=== PATIENT | male | born 1960 | race Caucasian/White ===

== ENCOUNTER 2019-12-09 15:30 | Emergency (ER) | payer BC, SELFPAY ==
[2019-12-09 15:31] VITALS: BP 165/89; PULSE 91; RESP 20; TEMP 36.7; O2SAT 98; BMI 31.6
--- NOTE | 2019-12-09 15:40 | CT_ITS ---
STUDY: CT ABDOMEN AND PELVIS WITHOUT CONTRAST REASON FOR EXAM: Male, 59 years old. Left flank pain, nausea today, hypertension. RADIATION DOSAGE (If Supplied By Facility): CTDIvol = ( 17.15 ) mGy, DLP = ( 938.39 ) mGycm TECHNIQUE: Transaxial images were obtained from the dome of the diaphragm to the symphysis pubis without oral contrast, and without intravenous contrast. Sagittal and coronal images were reconstructed. Individualized dose optimization techniques were used for this CT. COMPARISON: None. FINDINGS: The visualized lung bases are unremarkable. The visualized portions of the heart are within normal limits. Multiple well-defined low-density cystic lesions throughout the liver compatible with simple cysts. Benign, incidental finding; no specific imaging workup recommended according to current ACR guidelines. Diminished density throughout the liver is compatible with hepatic steatosis. Normal gallbladder and extrahepatic biliary system. Normal spleen. Normal pancreas. Normal bilateral adrenal glands. There are bilateral renal cysts measuring up to 6 cm on the left side. Benign, incidental finding; no specific imaging workup recommended according to current ACR guidelines. Mild left hydronephrosis and periureteral stranding with a 2 mm calculus in the distal left ureter on image 166 of series 2. Normal visualized stomach. Normal small intestine. Normal colon. There is non-visualization of the appendix. There is diffuse atherosclerotic calcification of the abdominal aorta, without a demonstrated aneurysm. Normal inferior vena cava. Normal retroperitoneum. Nondistended urinary bladder. There are prostatic calcifications. Normal abdominal wall. Facet arthropathy of the lower lumbar spine with foraminal narrowing at L4-L5 and L5-S1. CT/Abdomen/Pelvis without Cont IMPRESSION: 1. 2 mm distal left ureter calculus with mild hydronephrosis. 2. Hepatic steatosis. 3. Appendectomy. Electronically Signed: Chencho Morataya MD ([place]) at 16:37 EDT , Service support ,
--- NOTE | 2019-12-09 15:41 | ED.VISSUMM ---
- ER Visit Summary Date of Service: 12/09/19 Chief Complaint: [Flank pain] History of Present Illness: The patient is a 59 M [ present to the emergency department with pain that started around 8 AM. Patient has had nausea but no vomiting. He denies any blood in his stool or black tarry stool. He denies urinary symptoms. He is never had pain like this before. He currently rates it a 5 or 6 out of 10. Patient has history of hypertension and high cholesterol. Patient denies any injury to his back.] Physical Examination: [HEENT-PERRLA, EOMI. Cranial nerves II through XII grossly intact. TMs clear. Mucous membranes moist. No adenopathy. Cardiovascular-regular rate and rhythm without murmur or ectopy Lungs-clear to auscultation, chest wall stable without crepitus or subcu emphysema Abdomen-normoactive bowel sounds, soft. Patient has tenderness palpation over left lower quadrant with some guarding. There is no rebound, rigidity, or cranial signs. Patient does have some CVA tenderness on the left. Extremities-intact ?4, normal range of motion, normal pulses, atraumatic] Test Results: [CBC with differential obtained showed a white count of 10.9, hemoglobin 15.8, hematocrit 45, platelets 218. Chemistries unremarkable. BUN was 16 and creatinine 1.61. Urinalysis was unremarkable for infection but did have 0-5 RBCs. Lactate was 2.9. [address] flank showed a 2 mm stone distal left ureter with mild hydronephrosis.] Emergency Department Course and Treatment: [IV line established. Patient was given normal saline. Patient was medicated with Dilaudid, Toradol, and Zofran. Patient had good pain relief with that.] Treatment Plan: Patient will be given urine strainers. Patient given a prescription for [place] for pain. Patient advised to follow-up with his urologist in 3 to 5 days. Patient advised to return if worsening pain, fever, vomiting, or condition should worsen anyway.] Disposition: [Discharged home in stable condition] Impression: [Left ureteral lithiasis] This note was generated with [employer] software. It may contain incorrect words, spelling, and punctuation that were not noted in review of the chart prior to signing
[2019-12-09] MEDS: 0.9% Normal Saline 1,000 ML 125 ML IV (15:56)
[2019-12-09] MEDS: Ketorolac 30 MG/ML Syringe 15 MG IV (15:57)
[2019-12-09] MEDS: Ondansetron 4 MG/2 ML Vial IV (15:57)
[2019-12-09] MEDS: HYDROmorphone 1 MG/ML Syringe IV (15:57)
[2019-12-09 16:02] LABS: Absolute Neutrophil Count 9.6 X10^3/uL (2.0-7.7); Basophil# 0.02 X10^3/uL; Basophil% 0.2 % (0-1); Hematocrit 45.2 % (40-54); Hemoglobin 15.8 g/dL (13.0-16.5); Lymphocyte % 7.3 % (19-41); Mean Corpuscular Hgb 31.9 pg (27.0-32.0); Mean Corpuscular Volume 91.1 fL (80-94); Mean Platelet Vol. 9.1 fl (6.2-12.0); Monocyte# 0.45 X10^3/uL; Monocyte% 4.1 % (0-10); NRBC Flagged by Analyzer 0 % (0-5); Neutrophil # 9.59 X10^3/uL (2.7-7.7); Neutrophil % 87.9 % (47-70); POSITIVE MORPHOLOGY YES; Platelet Count 218 K/mm3 (150-450); RBC Distribution Width CV 12.1 % (11.6-14.6); RBC Distribution Width SD 39.8 fl (35.1-43.9); Red Blood Count 4.96 M/mm3 (4.6-6.2); White Blood Count 10.9 K/mm3 (4.4-11.0)
[2019-12-09 16:05] LABS: Differential Indicated SCAN CRITERIA MET
[2019-12-09 16:13] LABS: Anion Gap 7 (5-15); BUN 16 mg/dL (7-18); BUN/Creat Ratio 9.9 RATIO (10-20); Calcium,Total 9.4 mg/dL (8.5-10.1); Chloride 111 mmol/L (98-107); Creatinine, Serum 1.61 mg/dL (0.70-1.30); EST Glomerular Filtration Rate 47 mL/min (>60); Est Glom Filt Rate - Afr Amer 56 mL/min (>60); Estimated Creatinine Clearance 54.45 ml/min; Glucose 145 mg/dL (74-106); Potassium 4.3 mmol/L (3.5-5.1); Sodium Level 142 mmol/L (136-145)
[2019-12-09 16:17] LABS: Bacteria 0 SEEN /hpf (None Seen); Color, Urine Yellow (Yellow); Glucose, Dipstick Normal (Normal); Ketone-Dipstick 5 mg/dl (Negative); Leukocyte Esterase-Dipstick Negative /ul (Negative); Mucous, Urine 0 SEEN /hpf (<or=2+); Nitrite-Dipstick Negative (Negative); Occult Blood-Urine 25 /ul (Negative); Protein-Dipstick 30 mg/dl (Negative); Urine Bilirubin Dipstick Negative (Negative); Urine Urobilinogen Normal (Normal); White Blood Cells 0 SEEN /hpf (0-5)
[2019-12-09 16:31] LABS: Red Blood Cells-Urine 0-5 SEEN /hpf (0-5); Squamous Epithelial Cells - UA 0-5 SEEN /hpf (0-5)
[2019-12-09 16:32] LABS: Urine Clarity Sl Cldy (Clear)
[2019-12-09 16:35] LABS: Lactic Acid 2.9 mmol/L (0.4-1.9)
[2019-12-09 16:39] LABS: Reflex Lactate? Y
[2019-12-09 16:50] LABS: Differential Comment SCANNED; Platelet Estimate ADEQUATE (ADEQ); Red Cell Morphology NORM C+C NORMAL (NORM C&C)
--- NOTE | 2019-12-09 16:59 | DCINST.ED_ITS ---
ED Disposition - Plan for ED Patient: Instructions: ED Renal Stone w Colic Prescriptions: Naproxen [Naprosyn] 500 mg PO BID PRN #20 tab Prescription Printed Hydrocodone Bitart/Apap 5-325 [[place] 5MG-325MG] 1 tab PO Q4H PRN PRN 2 Days #10 tab PRN Reason: Pain Prescription Printed Ondansetron [Zofran Odt] 4 mg PO Q8H PRN PRN #10 tab PRN Reason: Nausea Prescription Printed Referrals: Porter Miranda MD [Primary Care Provider] - Additional Instructions: see your urologist as needed
== END 2019-12-09 17:14 | disposition home or self-care (01) ==
LOC: ED 16:48
PROVIDERS: Emergency Provider Emergency Medicine; PCP Family Medicine
DX: N20.1 Calculus of ureter (principal)
CPT/HCPCS: 74176; 80048; 81001; 83605; 85025; 96374; 96375; 99283; J7030; A4216; J2405

== ENCOUNTER 2020-05-22 11:09 | Outpatient (RCR) | payer BC, SELFPAY ==
[2020-05-22] MEDS: COVID-19 VACC, MRNA(PFIZER)/PF 30 MCG/0.3 ML SYRINGE IM (17:10)
[2020-06-12] MEDS: COVID-19 VACC, MRNA(PFIZER)/PF 30 MCG/0.3 ML SYRINGE IM (16:30)
== END 2020-08-19 23:59 ==
LOC: IMMUN 11:09
PROVIDERS: PCP Family Medicine; Visit Provider Family Medicine
DX: Z23 Encounter for immunization (principal)
CPT/HCPCS: 0001A; 0002A; 91300

== ENCOUNTER 2023-04-18 07:16 | Emergency (ER) | payer OTHER, SELFPAY ==
[2023-04-18 07:16] VITALS: BP 143/83; PULSE 63; RESP 18; TEMP 36.6; O2SAT 97; BMI 33.0
--- NOTE | 2023-04-18 07:28 | CT_ITS ---
STUDY: CT ABDOMEN AND PELVIS WITHOUT CONTRAST REASON FOR EXAM: Male, 63 years old. Kidney Stone. Left-sided lower back pain. RADIATION DOSAGE (If Supplied By Facility): CTDIvol = ( 18.68 ) mGy, DLP = ( 1101.57 ) mGycm TECHNIQUE: Transaxial images were obtained from the dome of the diaphragm to the symphysis pubis without oral contrast, and without intravenous contrast. Sagittal and coronal images were reconstructed. Individualized dose optimization techniques were used for this CT. COMPARISON: Comparison is made with prior examination of December 09, 2019. FINDINGS: The visualized lung bases are unremarkable. The visualized portions of the heart are within normal limits. Once again, simple cysts are seen in both lobes of the liver. The largest cyst is the right lobe of the liver in the region of the dome measuring 4.9 cm x 5 cm. Once again, there is evidence of fatty infiltration of the liver. Normal gallbladder and extrahepatic biliary system. Normal spleen. Normal pancreas. Normal bilateral adrenal glands. There is a 1.9 cm cyst in the midportion of the right kidney. Stable cyst seen in the midportion of the left kidney measuring 6.6 cm x 5.9 cm. Normal visualized stomach. Normal small intestine. Normal colon. There is non-visualization of the appendix. There is scattered atherosclerotic calcification of the abdominal aorta, without a demonstrated aneurysm. Normal inferior vena cava. Normal retroperitoneum. Normal urinary bladder. There are prostatic calcifications. Normal abdominal wall. Normal osseous structures. CT/Abdomen/Pelvis without Cont IMPRESSION: Fatty infiltration of the liver. Multiple hepatic cysts. Stable bilateral renal cysts. No obstructive uropathy is seen. Electronically Signed: Caden Cardenas MD at 8:42 EST ,
--- NOTE | 2023-04-18 07:29 | ED.VIS.BACK ---
HPI History of Present Illness Chief Complaint: Back Narrative Narrative: 63-year-old male past medical history of hypertension, hypercholesterolemia, presents with left-sided back pain/flank pain that began yesterday evening around 5 PM, approximately 14 hours ago. It was sudden in onset. He denies any injury. He states that he could not get comfortable or find a comfortable position. He took pain medication and was able to sleep somewhat during the night but when he woke up, he is having continued left low back pain and flank pain. He denies any fevers or chills. No nausea or vomiting. No hematuria or dysuria. Pain is deep within his back. Of note, he and his state that about a year ago he was seen in the emergency department and was diagnosed with a kidney stone and this feels very similar. [facility] Medical History Hypertension Home Medications naproxen 500 mg tablet 500 mg PO BID PRN #20 tabs 12/09/19 [Rx Last Taken Unknown] ondansetron 4 mg disintegrating tablet 4 mg PO Q8H PRN PRN Nausea #10 tabs 12/09/19 [Rx Last Taken Unknown] atorvastatin 40 mg tablet 40 mg PO DAILY 04/18/23 [History Last Taken Unknown] cyclobenzaprine 10 mg tablet 10 mg PO TID PRN Muscle Spasm #20 TABLETS 04/18/23 [Rx Last Taken Unknown] folic acid 1 mg tablet 1 mg PO DAILY 04/18/23 [History Last Taken Unknown] hydrochlorothiazide 12.5 mg tablet 12.5 mg PO DAILY 04/18/23 [History Last Taken Unknown] ibuprofen 600 mg tablet 600 mg PO Q8H PRN PRN pain #20 TABLETS 04/18/23 [Rx Last Taken Unknown] levothyroxine 175 mcg tablet 175 mcg PO DAILY 04/18/23 [History Last Taken Unknown] losartan 100 mg tablet 100 mg PO DAILY 04/18/23 [History Last Taken Unknown] metoprolol succinate 50 mg tablet,extended release 24 hr 50 mg PO DAILY 04/18/23 [History Last Taken Unknown] Allergy/AdvReac Type Severity Reaction Status Date / Time No Known Allergies Allergy Verified 04/18/23 07:19 Social History Smoking Status: Never smoker ROS ROS ED ROS Narrative Constitutional: No fever, no chills. HEENT: No sore throat. No neck pain. No loss of vision. No rhinorrhea. Cardiovascular: No chest pain. No palpitations. No pedal edema. Respiratory: No cough, no shortness of breath. Abdominal: No abdominal pain. No nausea. No vomiting. Genitourinary: No dysuria. No hematuria. Left low back pain/flank pain Musculoskeletal: No myalgias. No arthralgias. Neurologic: No headaches. No dizziness. No lightheadedness. Skin: No rash. No change in color. Psychiatric: No depression. No anxiety. EXAM Physical Exam Narrative Exam Narrative: Afebrile. Vital signs noted. HEENT: Normocephalic. Atraumatic. PERRL, EOMI. Neck soft and supple. No point tenderness or step off. Cardiovascular: Regular rate and rhythm. No murmurs, rubs, or gallops appreciated. Respiratory: No tachypnea. Lungs clear to auscultation bilaterally. Gastrointestinal: Abdomen soft, nontender, with normoactive bowel sounds. No rebound or guarding. Neurological: Awake. Alert. Nonfocal, nonlateralizing. Skin: No rash. Normal color. No pallor. Musculoskeletal: No pedal edema. Full range of motion extremities. No tenderness in sciatic notch. No vertebral point tenderness or bony step-off of the low back. No CVA tenderness to percussion, left. Const Vital Signs: 04/18/23 07:16 Temperature 97.9 F Temperature Source Temporal Pulse Rate 63 Respiratory Rate 18 Blood Pressure 143/83 H Blood Pressure Mean 103 Pulse Ox 97 Oxygen Delivery Method Room Air MDM MDM MDM Narrative Medical decision making narrative: I reviewed his prior records. He was seen initially for abdominal pain and diagnosed with a 2 mm stone in the differential is ureteral. In the differential is ureterolithiasis versus musculoskeletal back pain. I have low suspicion for any bowel pathology such as diverticulitis as a history and physical does not support this. I do feel CT imaging is indicated. CBC and BMP were obtained. Initially he declines any narcotic analgesic and he was administered Toradol 30 mg intravenously and started on IV fluids at 250 mL/h. This was increased to a bolus. I reviewed his laboratory work from today and he has normal white count of 6.1, hemoglobin 14.8, hematocrit 42.8, platelet count normal at 166. His chloride is slightly elevated at 111 which I think is nonspecific, BUN normal at 14 with creatinine 1.07. Glucose is elevated at 139 but he has a normal anion gap/low at 2. I have low concern for any diabetic ketoacidosis. Urinalysis was reviewed and is negative for infection. I do not feel antibiotics are indicated. I reviewed the radiology report of the CT without contrast and there is no evidence of ureterolithiasis or hydronephrosis. There are kidney cysts and liver cysts which were also present in the CT scan of 2019 and appears stable. Upon repeat examination, after Toradol, he feels improved. I do feel that he may have more musculoskeletal back pain. He was written prescriptions for ibuprofen 600 mg to take every 8 hours he was warned of the risk of ulcers and increase in blood pressure. Additionally, he was told that Flexeril may make him drowsy so he should take it at night if possible. I do not feel he requires admission. I feel he can be discharged to follow-up with his primary care provider. Return instructions to the emergency department were reviewed. Disposition is discharged home in stable condition. History & Record Review Discussion w/independent historian: Patient and Family Additional record(s) reviewed:: Prior ED visit Lab Data Attestation: I reviewed the patient's lab results. Labs: Laboratory Results - last 24 hr 04/18/23 04/18/23 07:50 08:55 WBC 6.1 RBC 4.71 Hgb 14.8 Hct 42.8 MCV 90.9 MCH 31.4 MCHC 34.6 RDW Std Deviation 40.4 RDW Coeff of Stephanie 12.5 Plt Count 166 MPV 9.3 Immature Gran % (Auto) 0.500 Neut % (Auto) 65.6 Lymph % (Auto) 24.3 [place] % (Auto) 7.6 Eos % (Auto) 1.5 Baso % (Auto) 0.5 Absolute Neuts (auto) 4.0 Absolute Lymphs (auto) 1.48 Nucleated RBC % 0 Sodium 143 Potassium 4.0 Chloride 111 H Carbon Dioxide 30.0 Anion Gap 2 L BUN 14 Creatinine 1.07 Estim Creat Clear Calc 90.92 Est GFR (MDRD) Af Amer 89 Est GFR (MDRD) Non-Af 74 BUN/Creatinine Ratio 13.1 Glucose 139 H Calcium 9.3 Urine Color Yellow Urine Clarity Sl. Cloudy Urine pH 6.0 Ur Specific [place] 1.020 Urine Protein Negative Urine Glucose (UA) Normal Urine Ketones Negative Urine Occult Blood Negative Urine Nitrite Negative Urine Bilirubin Negative Urine Urobilinogen Normal Ur Leukocyte Esterase Negative Urine RBC 0 SEEN Urine WBC 0 SEEN Ur Squamous Epith Cells 0 SEEN Urine Bacteria 0 SEEN Urine Mucus 0 SEEN Radiography Diagnostic Testing: Clinical Impression(s) from Imaging Studies Abdomen/Pelvis CT 04/18/23 07:28 IMPRESSION: Fatty infiltration of the liver. Multiple hepatic cysts. Stable bilateral renal cysts. No obstructive uropathy is seen. Electronically Signed: Caden Cardenas MD at 8:42 EST , Discharge Plan Triage Chief Complaint: Back ED Provider: Kenny Perez Dx/Rx/DC Orders Clinical Impression: Kidney cysts, Liver cyst, Left low back pain, Left flank pain Instructions: Simple Kidney Cysts, ED Back Pain (Acute or Chronic), ED Back Sprain/Strain, ED Flank Pain, Uncertain Cause Prescriptions: New ibuprofen 600 mg tablet 600 mg PO Q8H PRN PRN (Reason: pain) Qty: 20 0RF cyclobenzaprine 10 mg tablet 10 mg PO TID PRN (Reason: Muscle Spasm) Qty: 20 0RF No Action ondansetron 4 MG tablet 4 mg PO Q8H PRN PRN (Reason: Nausea) Qty: 10 0RF naproxen 500 MG tablet 500 mg PO BID PRN Qty: 20 0RF atorvastatin 40 mg tablet 40 mg PO DAILY levothyroxine 175 mcg tablet 175 mcg PO DAILY metoprolol succinate 50 mg tablet extended release 24 hr 50 mg PO DAILY folic acid 1 mg tablet 1 mg PO DAILY losartan 100 mg tablet 100 mg PO DAILY hydrochlorothiazide 12.5 mg tablet 12.5 mg PO DAILY Primary Care Provider: Porter Miranda Referrals: Porter Miranda MD [Primary Care Provider] - 1 Week if not improving Activity Restrictions/Additional Instructions: You have cysts on your kidneys and in your liver. These were also seen on a CAT scan in 2019. Disposition Disposition: Home, Self Care
--- OUTSIDE RECORDS SUMMARY | 2023-04-18 07:42 | XMS RPT_ITS | CCD ---
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 type Vitamin D deficiency Unspecified vitamin D deficiency Hypothyroidism, acquired Unspecified hypothyroidism Elevated glucose Other abnormal glucose documented in this encounter [facility] note* Diagnosis Hypertension, unspecified type- Primary Hyperlipidemia, unspecified hyperlipidemia type Hypothyroidism, acquired Unspecified hypothyroidism HERLINDA (obstructive sleep apnea) Obstructive sleep apnea (adult) (pediatric) Sinus congestion Other diseases of nasal cavity and sinuses [facility] Diagnosis Presbyopia- Primary Combined forms of age-related cataract of both eyes Other and combined forms of senile cataract documented in this encounter [facility] note* Diagnosis Hypertension, unspecified type- Primary Hyperlipidemia, unspecified hyperlipidemia type Hypothyroidism, acquired Unspecified hypothyroidism HERLINDA (obstructive sleep apnea) Obstructive sleep apnea (adult) (pediatric) Chronic midline low back pain without sciatica documented in this encounter [facility] note* Diagnosis Neoplasm of uncertain behavior of skin- Primary Other viral warts Seborrheic keratosis Hemangioma of skin Hemangioma of skin and subcutaneous tissue Multiple benign nevi of torso documented in this encounter [facility] course Narrative No data available for this section [facility] Hospital Discharge instructions No data available for this section [facility] Reason for referral (narrative)* Diagnostic Procedure Only (Routine) - Closed Specialty Diagnoses / Procedures Referred By Contac t Referred To Contact XR IMAGING Diagnoses Chronic midline low back pain without sciatica Procedures XR LUMBAR GENERAL 3V AP/LAT/L5-S1 RADEX SPINE LUMBOSACRAL 2/3 VIEWS Jn Guaman, EXCHANGE ENGINEER [address] [place] [address] Xr Imaging Referral ID Status Reason Start Date Expiration Date V isits Requested Visits Authorized [id number] Closed Auto-Generate d Referral 08/13/2022 09/12/2023 1 1 [facility] Summary Purpose Family History No Family History Records FoundNo Family History Records FoundNo Family History Records FoundNo Family History Records FoundNo Family History Records FoundNo Family History Records FoundNo Family History Records FoundNo Family History Records Found Advance Directives No Advanced Directives Records FoundDocuments on File Type Date Recorded Patient Soda Drier Feeder Expl anation Advance Directive(s) 01/16/2020 3:06 PM Latest Code Status on File Code Status Date Activated Date Inactivated Comments Full Code 01/15/2022 10:04 AM 01/15/2022 5:11 PM Procedure Findings Note HNO ID: [id number] Author: Nunu Alegria (Aa) Service: ? Author Type: Financial Aid Coordinator Type: Anesthesia Procedure Notes Filed: 01/24/2020 10:00 AM Note Text: ANESTHESIOLOGY PROCEDURE NOTE Airway General Information Procedure Start Time/Medication Administration: 01/24/2020 9:43 AM Patient location during procedure: OR Timeout Performed Pre-procedure: timeout performed Consent Obtained: Yes Patient identity confirmed: arm band and patient Staffing CAA: Lyle Alegria (Aa) Indications and Patient Condition Preoxygenated: yes Difficult Mask: Yes Indications for airway management: anesthesia anesthesia circuit Method: asleep Airway Accessory: oral airway Final Airway Details Final airway type: endotracheal airway Final Endotracheal Airway: ETT Cuffed: yes Successful intubation technique: video laryngoscopy Devices used: Silveira Endotracheal tube insertion site: oral Blade size: #4 ETT size (mm): 7.5 Measured from: lips Measurement (cm): 23 Placement verified by: chest auscultation (more content not included)... Note HNO ID: [id number] Author: Delores montes (Kyra Cordero MD Service: General Surgery Author Type: Resident Type: Brief Op Note Filed: 01/24/2020 12:10 PM Note Text: BRIEF OPERATIVE / PROCEDURE NOTE LOG ID: [id number] Surgery/Procedure Date: 01/24/2020 Incision/Procedure Start Time: 9:58 AM Incision Close/Procedure End Time: 12:04 PM Surgeon(s)/Proceduralist(s) and Section Supervisor(s): Surgeon(s) and Role: * Jameson Guerrier - Primary * Ernestine Cordero MD - Resident - Assisting * Mikayla (Res) Dias - Resident - Assisting No Additional Staff Procedure(s): total thyroidectomy Anesthesia: General Findings: bilateral multinodular goiter Estimated Blood Loss: 15 mls Specimens: total thyroid gland Wound Classification: Class 1, operative wound clean, non-traumatic, with no inflammation encountered, no break in technique, biliary, gastrointestinal and genitor-urinary tracts not entered Complications: None PRE-OP/PRE-PROCEDURE DIAGNOSIS: nontoxic multinodular goiter POST-OP/POST-PROCEDURE DIAGNOSIS: Same as (more content not included)... Additional Source Comments (unrecognized sect ion and content) No Status Records FoundNo Status Records FoundNo Status Records FoundNo Status Records FoundNo Status Records FoundNo Status Records FoundNo Status Records FoundNo Status Records Found INFORMATION SOURCE (unrecogn ized section and content) DATE CREATED AUTHOR AUTHOR'S ORGANIZ ATION 01/14/2020 [facility] DATE CREATED AUTHOR AUTHOR'S ORGANIZ ATION 04/05/2020 [facility] DATE CREATED AUTHOR AUTHOR'S ORGANIZ ATION 01/11/2021 [facility] DATE CREATED AUTHOR AUTHOR'S ORGANIZ ATION 06/15/2022 [facility] DATE CREATED AUTHOR AUTHOR'S ORGANIZ ATION 07/06/2022 [facility] ([place]) DATE CREATED AUTHOR AUTHOR'S ORGANIZ ATION 02/17/2023 [facility] DATE CREATED AUTHOR AUTHOR'S ORGANIZ ATION 03/27/2023 [facility] Source Comments (unrecognize d section and content) In the event this informatio n is protected by the Federal Confidentiality of Alcohol and Drug Abuse Patient Records regulations: The Federal rules restrict any use of the information to criminally investigate or prosecute any alcohol or drug abuse patient.[facility] the event this information is protected by the Federal Confidentiality of Alcohol and Drug Abuse Patient Records regulations: The Federal rules restrict any use of the information to criminally investigate or prosecute any alcohol or drug abuse patient.[facility] the event this information is protected by the Federal Confidentiality of Alcohol and Drug Abuse Patient Records regulations: The Federal rules restrict any use of the information to criminally investigate or prosecute any alcohol or drug abuse patient.[facility] the event this information is protected by the Federal Confidentiality of Alcohol and Drug Abuse Patient Records regulations: The Federal rules restrict any use of the information to criminally investigate or prosecute any alcohol or drug abuse patient.[facility] the event this information is protected by the Federal Confidentiality of Alcohol and Drug Abuse Patient Records regulations: The Federal rules restrict any use of the information to criminally investigate or prosecute any alcohol or drug abuse patient.[facility] the event this information is protected by the Federal Confidentiality of Alcohol and Drug Abuse Patient Records regulations: The Federal rules restrict any use of the information to criminally investigate or prosecute any alcohol or drug abuse patient.[facility] the event this information is protected by the Federal Confidentiality of Alcohol and Drug Abuse Patient Records regulations: The Federal rules restrict any use of the information to criminally investigate or prosecute any alcohol or drug abuse patient.[facility] the event this information is protected by the Federal Confidentiality of Alcohol and Drug Abuse Patient Records regulations: The Federal rules restrict any use of the information to criminally investigate or prosecute any alcohol or drug abuse patient.[facility] the event this information is protected by the Federal Confidentiality of Alcohol and Drug Abuse Patient Records regulations: The Federal rules restrict any use of the information to criminally investigate or prosecute any alcohol or drug abuse patient.[facility] Hospital[facility] the event this information is protected by the Federal Confidentiality of Alcohol and Drug Abuse Patient Records regulations: The Federal rules restrict any use of the information to criminally investigate or prosecute any alcohol or drug abuse patient.[facility] Reason for Visit (unrecogniz ed section and content) Reason Comments Patient Update Pulm provider Reason Comments Follow Up follow up meds, Need C-pap Rx, sinus infection Reason Comments Forms Vicente's re: HERLINDA sup plies Reason Comments Yearly Exam Reason Comments Results Blood work Reason Onset Date Comments Refill Request 03/30/2022 Reason Comments 6 Month Exam Reason Comments Results Xray Reason Comments Skin Lesion (LMS) Care Teams (unrecognized sec tion and content) User Interface Engineer Relationship Specialty Start Date End Date Grecia Meyers MD [address], [place] [id number] PCP - General Family Medicine 12/17/14 Lyle Mcnair DO [address] [place] [address] Referring Endocrinology 01/23/19 User Interface Engineer Relationship Specialty Start Date End Date Grecia Meyers MD [address] [place], [place] [id number] PCP - General Family Medicine 12/17/14 Lyle Mcnair DO [address] [place] [address] Referring Endocrinology 01/23/19 User Interface Engineer Relationship Specialty Start Date End Date Grecia Meyers MD [address], [place] [id number] PCP - General Family Medicine 12/17/14 Lyle Mcnair, DO [address] [place], [place] [id number] Referring Endocrinology 01/23/19 User Interface Engineer Relationship Specialty Start Date End Date Grecia Meyers MD [address] [place] [address] PCP - General Family Medicine 12/17/14 Lyle Mcnair, DO [address] [place], [place] [id number] Referring Endocrinology 01/23/19 User Interface Engineer Relationship Specialty Start Date End Date Grecia Meyers MD [address] [place] [address] PCP - General Family Medicine 12/17/14 Lyle Mcnair, [address] [place] [address] Referring Endocrinology 01/23/19 User Interface Engineer Relationship Specialty Start Date End Date Grecia Meyers MD [address] [place] [address] PCP - General Family Medicine 12/17/14 Lyle Mcnair, [address] [place] [address] Referring Endocrinology 01/23/19 User Interface Engineer Relationship Specialty Start Date End Date Grecia Meyers [address] [place] [address] PCP - General 07/12/17 FOR RECORDS PERTAINING TO PATIENTS WHO ARE OR HAVE BEEN ENROLLED IN A CHEMICAL DEPENDENCY/SUBSTANCEABUSE PROGRAM, SOME INFORMATION MAY BE OMITTED. This clinical summary was aggregated from multiple sources. Caution should be exercised in using it in the provision of clinical care. This summary normalizes information from multiple sources, and as a consequence, information in this document may materially change the coding, format and clinical context of patient data. In addition, data may be omitted in some cases. CLINICAL DECISIONS SHOULD BE BASED ON THE PRIMARY CLINICAL RECORDS. [email or web address] [facility]. provides no warranty or guarantee of the accuracy or completeness of information in this document.
[2023-04-18] MEDS: 0.9% Normal Saline (1000mL) 1,000 ML 250 ML IV (07:44)
[2023-04-18] MEDS: Ketorolac 30 MG/ML Syringe IV (07:45)
[2023-04-18 08:02] LABS: Absolute Lymphocyte Count 1.48 X10^3/uL (0.83-4.51); Basophil# 0.03 X10^3/uL; Basophil% 0.5 % (0-1); Eosinophil# 0.09 X10^3/uL; Eosinophils% 1.5 % (0-5); Hematocrit 42.8 % (40-54); Hemoglobin 14.8 g/dL (13.0-16.5); Lymphocyte # 1.48 X10^3/ul (0.83-4.51); Lymphocyte % 24.3 % (19-41); Mean Corp Hgb Conc 34.6 g/dL (32-36); Mean Corpuscular Hgb 31.4 pg (27.0-32.0); Mean Corpuscular Volume 90.9 fL (80-94); Mean Platelet Vol. 9.3 fl (6.2-12.0); Monocyte# 0.46 X10^3/uL; Monocyte% 7.6 % (0-10); NRBC Flagged by Analyzer 0 % (0-5); Neutrophil % 65.6 % (47-70); Platelet Count 166 K/mm3 (150-450); RBC Distribution Width CV 12.5 % (11.6-14.6); RBC Distribution Width SD 40.4 fl (35.1-43.9); Red Blood Count 4.71 M/mm3 (4.6-6.2); White Blood Count 6.1 K/mm3 (4.4-11.0)
[2023-04-18 08:13] LABS: Anion Gap 2 (5-15); BUN 14 mg/dL (7-18); BUN/Creat Ratio 13.1 RATIO (10-20); Calcium,Total 9.3 mg/dL (8.5-10.1); Chloride 111 mmol/L (98-107); Creatinine, Serum 1.07 mg/dL (0.70-1.30); EST Glomerular Filtration Rate 74 mL/min (>60); Est Glom Filt Rate - Afr Amer 89 mL/min (>60); Estimated Creatinine Clearance 90.92 ml/min; Glucose 139 mg/dL (74-106); Sodium Level 143 mmol/L (136-145)
[2023-04-18 09:02] LABS: Bacteria 0 SEEN /hpf (None Seen); Mucous, Urine 0 SEEN /hpf (<or=2+); Red Blood Cells-Urine 0 SEEN /hpf (0-5); Squamous Epithelial Cells - UA 0 SEEN /hpf (0-5); White Blood Cells 0 SEEN /hpf (0-5)
[2023-04-18 09:10] LABS: Color, Urine Yellow (Yellow); Glucose, Dipstick Normal (Normal); Ketone-Dipstick Negative (Negative); Leukocyte Esterase-Dipstick Negative /ul (Negative); Nitrite-Dipstick Negative (Negative); Occult Blood-Urine Negative /ul (Negative); Protein-Dipstick Negative (Negative); Urine Bilirubin Dipstick Negative (Negative); Urine Clarity Sl. Cloudy (Clear); Urine Urobilinogen Normal (Normal)
[2023-04-18 10:04] VITALS: BP 138/82; PULSE 80; RESP 16; O2SAT 99
== END 2023-04-18 10:07 | disposition home or self-care (01) ==
PROVIDERS: Emergency Provider Emergency Medicine; PCP Family Medicine; Visit Provider Emergency Medicine
DX: N28.1 Cyst of kidney, acquired (principal); K76.89 Other specified diseases of liver; M54.50 Low back pain, unspecified; R10.9 Unspecified abdominal pain; E78.00 Pure hypercholesterolemia, unspecified; I10 Essential (primary) hypertension; Z79.899 Other long term (current) drug therapy
CPT/HCPCS: 74176; 80048; 81001; 85025; 96374; 99282; J7030; A4216

== ENCOUNTER 2024-02-10 10:44 | Emergency (ER) | payer OTHER, SELFPAY ==
[2024-02-10 10:44] VITALS: BP 143/81; PULSE 69; RESP 16; TEMP 36.6; O2SAT 95; BMI 32.0
--- NOTE | 2024-02-10 11:01 | CT_ITS ---
EXAM: CT ABDOMEN AND PELVIS WITH INTRAVENOUS CONTRAST CLINICAL INDICATION: suprapubic and LLQ pain TECHNIQUE: Helically acquired images were obtained of the abdomen and pelvis with intravenous contrast. This CT exam was performed using one or more of the following dose reduction techniques: automated exposure control, adjustment of the mA and/or kV according to patient size, and/or use of iterative reconstruction technique. CONTRAST: [id number] COMPARISON: CT Abdomen Pelvis dated 04/18/201912/15 and 12/09/2019 FINDINGS: LOWER THORAX: Normal. Lung bases are clear. No cardiomegaly. No pericardial effusion. ABDOMEN: LIVER: Normal. No significant change in the size and number of the liver cysts. GALLBLADDER AND BILE DUCTS: Normal. No calcified gallstones. No gallbladder distention or wall edema. No intra- or extrahepatic biliary ductal dilation. PANCREAS: Normal. No focal cystic or solid mass. SPLEEN: Normal. Normal size without focal cystic or solid mass. ADRENALS: Normal. No nodules. KIDNEYS AND URETERS: Stable bilateral renal cysts. No specific follow-up indicated. Normal renal size and position. No hydronephrosis. STOMACH AND BOWEL: Normal. No bowel distention. No focal inflammatory change. PELVIS: APPENDIX: Small appendicoliths are again noted without evidence of acute appendicitis. BLADDER: Normal. REPRODUCTIVE: Unremarkable as visualized. No mass. ABDOMEN and PELVIS: INTRAPERITONEAL SPACE: Normal. No ascites or other fluid collection. No free air. BONES/JOINTS: No suspicious lytic or blastic abnormality. SOFT TISSUES: 2. Stable fat-containing left inguinal hernia. VASCULATURE: Normal. Abdominal aorta is non-dilated. LYMPH NODES: Normal. No enlarged lymph nodes. CT/Abdomen/Pelvis W IV Cont ONLY IMPRESSION: 1. No acute abdominal or pelvic abnormality. 2. Stable hepatic and renal cysts. Electronically Signed: Rich Heaton MD at 12:02 EST ,
--- NOTE | 2024-02-10 11:02 | ED.VIS.GI ---
HPI HPI - GI History of Present Illness Chief Complaint: Abd Pain Detail of Chief Complaint: Abdominal pain Informant: patient Narrative Narrative: Patient presents the emergency department with complaint of lower abdominal pain that started yesterday. Complains of pain in the suprapubic region that is especially worse with movement. If he just lays still he does not have any pain. He denies any fevers or chills or sweats. Denies urinary symptoms. Patient is not sure if this has anything to do with his workouts but he did workout 5 days ago. Normally he can have some soreness afterwards but no pain similar to what he is currently experiencing. He denies noticing any lumps or masses. He does have remote history of kidney stones but that pain felt different. No history of diverticulitis. No prior abdominal surgeries. Patient denies blood in the stool or black tarry stool. [facility] Medical History (Updated 02/10/24 @ 12:[address] Shant Dixon, ) History of kidney stones Hyperlipidemia Hypertension Home Medications ?Medication ?Instructions ?Recorded ?Last Taken ?Type naproxen 500 mg tablet 500 mg PO BID PRN #20 tabs 12/09/19 Unknown Rx ondansetron 4 mg disintegrating 4 mg PO Q8H PRN PRN Nausea #10 tabs 12/09/19 Unknown Rx tablet atorvastatin 40 mg tablet 40 mg PO DAILY 04/18/23 Unknown History cyclobenzaprine 10 mg tablet 10 mg PO TID PRN Muscle Spasm #20 04/18/23 Unknown Rx TABLETS folic acid 1 mg tablet 1 mg PO DAILY 04/18/23 Unknown History hydrochlorothiazide 12.5 mg tablet 12.5 mg PO DAILY 04/18/23 Unknown History ibuprofen 600 mg tablet 600 mg PO Q8H PRN PRN pain #20 04/18/23 Unknown Rx TABLETS levothyroxine 175 mcg tablet 175 mcg PO DAILY 04/18/23 Unknown History losartan 100 mg tablet 100 mg PO DAILY 04/18/23 Unknown History metoprolol succinate 50 mg 50 mg PO DAILY 04/18/23 Unknown History tablet,extended release 24 hr hydrocodone-acetaminophen 5-325mg 1 tab PO Q4H PRN PRN Pain 2 days 02/10/24 Unknown Rx 5mg-325mg #10 TABLETS Allergy/AdvReac Type Severity Reaction Status Date / Time No Known Allergies Allergy Verified 02/10/24 10:45 Surgical History (Updated 02/10/24 @ 11:05 by Niya Butler) History of thyroid surgery Social History Smoking Status: Never smoker ROS ROS ED Review of Systems ROS Unobtainable: other Constitutional Constitutional ED: Reports lethargy; Denies chills, fever(s), sweats or weight loss Eyes Eyes: Denies blurry vision, change in vision or diplopia ENT ENT ED: Denies rhinorrhea or sore throat Cardiovascular Cardiovascular: Denies chest pain, orthopnea or racing heartbeat Respiratory/Chest Respiratory/Chest: Denies cough, dyspnea, dyspnea on exertion, orthopnea or sputum Gastrointestinal Gastrointestinal: Reports abdominal pain; Denies diarrhea, nausea or vomiting Genitourinary Genitourinary ED: Denies dysuria, hematuria or urinary frequency Musculoskeletal Musculoskeletal: Denies arthralgias, back pain, myalgias or neck pain Integumentary Denies abscess, Abrasions or rash Neurologic Neurologic: Denies headache(s) or weakness Psychiatric Psychiatric: Denies anxiety, depression or suicidal thoughts Endocrine Endocrinology: Denies polydipsia, polyphagia or polyuria Hematologic/Lymphatic Hematologic/Lymphatic: Denies easy bleeding, easy bruising or lymphadenopathy Allergic/Immunologic Allergic/Immunologic ED: Denies mouth swelling, tongue swelling or urticaria EXAM Physical Exam Const Vital Signs: 02/10/24 10:44 Temperature 98 F Temperature Source Temporal Pulse Rate 69 Respiratory Rate 16 Blood Pressure 143/81 H Blood Pressure Mean 101 Pulse Ox 95 Oxygen Delivery Method Room Air Positive well nourished and well developed General Appearance ED: well developed and NAD HEENT Reports TM's clear and moist mucous membranes normocephalic and atraumatic; Negative for trauma or tenderness Tympanic Membrane ED: Yes TM's clear Eyes PERRL and EOMs intact bilaterally General Eye ED: Negative for pale conjunctiva or scleral icterus Neck no lymphadenopathy, supple and no JVD General: Negative for tenderness Chest Wall inspection of chest normal and palpation of chest normal Chest: Negative for tenderness Resp normal respiratory effort and clear to auscultation bilaterally Effort and Inspection: Negative for respiratory distress or pain with movement Auscultation: Negative for rhonchi, wheezes or diminished lung sounds Cardio regular rate, regular rhythm, S1 normal heart sound, S2 normal heart sound and no murmurs Peripheral Pulses: pulses 2+ throughout GI normal to inspection, nondistended, normoactive bowel sounds, soft to palpation, non-distended and no masses GI Narrative: Tenderness palpation over the suprapubic region with guarding. He also has some tenderness over left lower quadrant. No masses palpated. There is no rebound, rigidity, or peritoneal signs. No mass palpated. Back/Spine no CVA tenderness and no thoracic nor lumbar tenderness Extremity normal to inspection General Extremety ED: Negative for edema General Extremity: Negative for edema Neuro oriented x3, CN's II-XII intact bilaterally, no sensory deficits noted and gait normal Sensorium / Orientation: awake, alert, oriented to person, oriented to place and oriented to time Motor Exam: strength 5/5 throughout and strength abnormal Psych mental status grossly normal Skin no rashes or lesions noted and no wounds MDM MDM MDM Narrative Medical decision making narrative: Patient presents with abdominal pain since yesterday. He does have history of working out. Sometimes in the past when he is worked out he developed lower abdominal pain for few days and then would resolve but this is worse than usual. IV line established. CBC with differential obtained showed white count 7.7 with hemoglobin 15.7 and platelet count of 215. Chemistries unremarkable. Urinalysis normal. CT scan of the abdomen pelvis with IV contrast obtained was essentially normal. At this point etiology of his lower abdominal pain unclear although I suspect muscle strain. There is no evidence of hernia on CT. No evidence of hernia on physical exam. Patient will be given a prescription for few [place] for pain. He is advised to avoid lifting or straining until symptoms resolved. Lab Data Attestation: I reviewed the patient's lab results. Labs: Laboratory Results - last 24 hr 02/10/24 02/10/24 11:10 12:00 WBC 7.7 RBC 4.91 Hgb 15.7 Hct 44.5 MCV 90.6 MCH 32.0 MCHC 35.3 RDW Std Deviation 40.1 RDW Coeff of Stephanie 12.4 Plt Count 215 MPV 9.5 Immature Gran % (Auto) 0.400 Neut % (Auto) 60.9 Lymph % (Auto) 27.8 Roberts % (Auto) 9.0 Eos % (Auto) 1.3 Baso % (Auto) 0.6 Absolute Neuts (auto) 4.7 Absolute Lymphs (auto) 2.15 Nucleated RBC % 0 Sodium 142 Potassium 3.9 Chloride 110 H Carbon Dioxide 30.0 Anion Gap 2 L BUN 16 Creatinine 1.09 Estim Creat Clear Calc 85.40 Est GFR (MDRD) Af Amer 87 Est GFR (MDRD) Non-Af 72 BUN/Creatinine Ratio 14.7 Glucose 98 Lactic Acid 0.8 Calcium 9.3 Urine Color Yellow Urine Clarity Clear Urine pH 6.0 Ur Specific [place] 1.015 Urine Protein 15 H Urine Glucose (UA) Normal Urine Ketones Negative Urine Occult Blood 10 H Urine Nitrite Negative Urine Bilirubin Negative Urine Urobilinogen Normal Ur Leukocyte Esterase Negative Urine RBC 0 SEEN Urine WBC 0 SEEN Ur Squamous Epith Cells 0 SEEN Urine Bacteria 0 SEEN Urine Mucus 0 SEEN Radiography Diagnostic Testing: Clinical Impression(s) from Imaging Studies Abdomen/Pelvis CT 02/10/24 11:01 IMPRESSION: 1. No acute abdominal or pelvic abnormality. 2. Stable hepatic and renal cysts. Electronically Signed: Rich Heaton MD at 12:02 EST , Discharge Plan Triage Chief Complaint: Abd Pain ED Provider: Shant Dixon Dx/Rx/DC Orders Clinical Impression: Abdominal pain, Abdominal wall strain Instructions: ED Abdominal Pain Unkn Cause Male... Prescriptions: New hydrocodone-acetaminophen 5-325 mg tablet 1 tab PO Q4H PRN PRN (Reason: Pain) 2 Days Qty: 10 0RF No Action ondansetron 4 MG tablet 4 mg PO Q8H PRN PRN (Reason: Nausea) Qty: 10 0RF naproxen 500 MG tablet 500 mg PO BID PRN Qty: 20 0RF atorvastatin 40 mg tablet 40 mg PO DAILY levothyroxine 175 mcg tablet 175 mcg PO DAILY metoprolol succinate 50 mg tablet extended release 24 hr 50 mg PO DAILY folic acid 1 mg tablet 1 mg PO DAILY losartan 100 mg tablet 100 mg PO DAILY hydrochlorothiazide 12.5 mg tablet 12.5 mg PO DAILY ibuprofen 600 mg tablet 600 mg PO Q8H PRN PRN (Reason: pain) Qty: 20 0RF cyclobenzaprine 10 mg tablet 10 mg PO TID PRN (Reason: Muscle Spasm) Qty: 20 0RF Primary Care Provider: Porter Miranda Referrals: Porter Miranda MD [Primary Care Provider] - 3-5 Days Print Language: Salvadorean Disposition Disposition: Home, Self Care
[2024-02-10 11:18] LABS: Absolute Lymphocyte Count 2.15 X10^3/uL (0.83-4.51); Absolute Neutrophil Count 4.7 X10^3/uL (2.0-7.7); Basophil# 0.05 X10^3/uL; Basophil% 0.6 % (0-1); Eosinophils% 1.3 % (0-5); Hematocrit 44.5 % (40-54); Hemoglobin 15.7 g/dL (13.0-16.5); Lymphocyte # 2.15 X10^3/ul (0.83-4.51); Lymphocyte % 27.8 % (19-41); Mean Corp Hgb Conc 35.3 g/dL (32-36); Mean Corpuscular Volume 90.6 fL (80-94); Mean Platelet Vol. 9.5 fl (6.2-12.0); NRBC Flagged by Analyzer 0 % (0-5); Neutrophil # 4.71 X10^3/uL (2.7-7.7); Neutrophil % 60.9 % (47-70); Platelet Count 215 K/mm3 (150-450); RBC Distribution Width CV 12.4 % (11.6-14.6); RBC Distribution Width SD 40.1 fl (35.1-43.9); Red Blood Count 4.91 M/mm3 (4.6-6.2); White Blood Count 7.7 K/mm3 (4.4-11.0)
[2024-02-10 11:31] LABS: Anion Gap 2 (5-15); BUN 16 mg/dL (7-18); BUN/Creat Ratio 14.7 RATIO (10-20); Calcium,Total 9.3 mg/dL (8.5-10.1); Chloride 110 mmol/L (98-107); Creatinine, Serum 1.09 mg/dL (0.70-1.30); EST Glomerular Filtration Rate 72 mL/min (>60); Est Glom Filt Rate - Afr Amer 87 mL/min (>60); Glucose 98 mg/dL (74-106); Potassium 3.9 mmol/L (3.5-5.1); Sodium Level 142 mmol/L (136-145)
[2024-02-10 11:47] LABS: Lactic Acid 0.8 mmol/L (0.4-1.9)
[2024-02-10 12:05] LABS: Bacteria 0 SEEN /hpf (None Seen); Mucous, Urine 0 SEEN /hpf (<or=2+); Red Blood Cells-Urine 0 SEEN /hpf (0-5); Squamous Epithelial Cells - UA 0 SEEN /hpf (0-5); White Blood Cells 0 SEEN /hpf (0-5)
[2024-02-10 12:07] LABS: Color, Urine Yellow (Yellow); Glucose, Dipstick Normal (Normal); Ketone-Dipstick Negative (Negative); Leukocyte Esterase-Dipstick Negative /ul (Negative); Nitrite-Dipstick Negative (Negative); Occult Blood-Urine 10 /ul (Negative); Protein-Dipstick 15 mg/dl (Negative); Specific Gravity, Urine 1.015 (1.002-1.030); Urine Bilirubin Dipstick Negative (Negative); Urine Clarity Clear (Clear); Urine Urobilinogen Normal (Normal)
== END 2024-02-10 12:31 | disposition home or self-care (01) ==
PROVIDERS: Emergency Provider Emergency Medicine; PCP Family Medicine; Visit Provider Emergency Medicine
DX: S39.011A Strain of muscle, fascia and tendon of abdomen, initial encounter (principal); X58.XXXA Exposure to other specified factors, initial encounter; I10 Essential (primary) hypertension; E78.5 Hyperlipidemia, unspecified; Z79.899 Other long term (current) drug therapy; Z87.442 Personal history of urinary calculi
CPT/HCPCS: 74177; 80048; 81001; 83605; 85025; 99283; Q9967; A4216